=== PATIENT | female | born 1995 | race Caucasian/White ===

== ENCOUNTER 2019-09-27 17:55 | Emergency (ER) | payer BC ==
[~2019-09-27] VITALS: Ht 162.6 cm; Wt 95.3 kg
[2019-09-27 18:24] VITALS: BP_SYST 117
[2019-09-27 19:20] VITALS: BP_SYST 120
== END 2019-09-27 19:20 | disposition home or self-care (01) ==
LOC: SED 17:55
DX: F20.9 Schizophrenia, unspecified (principal); F32.9 Major depressive disorder, single episode, unspecified; F15.10 Other stimulant abuse, uncomplicated; F17.210 Nicotine dependence, cigarettes, uncomplicated; R03.0 Elevated blood-pressure reading, without diagnosis of hypertension; Z76.0 Encounter for issue of repeat prescription; Z71.6 Tobacco abuse counseling
CPT/HCPCS: 99281

== ENCOUNTER 2020-07-19 05:16 | Emergency (ER) | payer BC ==
[~2020-07-19] VITALS: Ht 165.1 cm; Wt 59.0 kg
[2020-07-19 05:20] VITALS: BP_SYST 160
--- NOTE | 2020-07-19 05:32 | NUR ---
Patient to ER bed 2 to gown for evaluation. Side rails up. Report given to Duane HERNANDEZ.
--- NOTE | 2020-07-19 05:35 | NUR ---
Received patient to ER accompanied w/ friend/family member to ER w/ c/o right thumb infection. When patient was approach for assesment, patient got out of the ER bed and walked out of the emergency room refusing to be treated and examined. CN and notified. Patient left without being seen.
== END 2020-07-19 05:35 | disposition left against medical advice (07) ==
LOC: SED 05:16
DX: M79.644 Pain in right finger(s) (principal); Z53.21 Procedure and treatment not carried out due to patient leaving prior to being seen by health care provider

== ENCOUNTER 2023-09-15 01:04 | Emergency (ER) | payer BC, MEDICAID ==
[~2023-09-15] VITALS: Ht 165.1 cm; Wt 72.6 kg
[2023-09-15 01:24] VITALS: BP_SYST 179; PULSE 122; RESP 16; TEMP 98.1; O2SAT 99
[2023-09-15] MEDS: PENICILLIN G BENZATHINE 1.2 MMU/2 ML SYR IM ONE (02:10)
[2023-09-15] MEDS ORDERED: DOXY-160 PO (02:25)
[2023-09-15] MEDS ORDERED: OLAN10TA71 PO (02:31)
[2023-09-15 02:32] VITALS: BP_SYST 165; PULSE 105; RESP 16; TEMP 98.1; O2SAT 100
== END 2023-09-15 02:32 | disposition home or self-care (01) ==
LOC: SED 01:04
DX: A53.9 Syphilis, unspecified (principal); A54.9 Gonococcal infection, unspecified; F15.229 Other stimulant dependence with intoxication, unspecified; I10 Essential (primary) hypertension; Z79.899 Other long term (current) drug therapy
CPT/HCPCS: 99283; 96372; J0561